=== PATIENT | male | born 1960 | race Caucasian/White ===

== ENCOUNTER → 2023-12-26 13:54 | Outpatient (REF) | payer BC, SELFPAY | LOC: HWRAD 13:54 | PROVIDERS: ATTENDING PHYSICIAN Nurse Practitioner Family; FAMILY PHYSICIAN Internal Medicine | DX: J45.998 Other asthma (principal) | CPT/HCPCS: 71046 ==

== ENCOUNTER → 2024-01-04 10:40 | Outpatient (REF) | payer BC, SELFPAY | LOC: RAD 10:40 | PROVIDERS: ATTENDING PHYSICIAN Allergy & Immunology; FAMILY PHYSICIAN Internal Medicine | DX: J45.998 Other asthma (principal) | CPT/HCPCS: 71250 ==

== ENCOUNTER → 2024-03-26 07:59 | Outpatient (REF) | payer BC, SELFPAY | LOC: DHCBC/DCA 07:59 | PROVIDERS: ATTENDING PHYSICIAN Internal Medicine Cardiovascular Disease; FAMILY PHYSICIAN Internal Medicine | DX: Z86.79 Personal history of other diseases of the circulatory system (principal) | CPT/HCPCS: 78452; 93017; A9500 ==

== ENCOUNTER → 2024-08-29 10:49 | Outpatient (REF) | payer BC, SELFPAY | LOC: HWRAD 10:49 | PROVIDERS: ATTENDING PHYSICIAN Nurse Practitioner Family; FAMILY PHYSICIAN Internal Medicine | DX: J45.998 Other asthma (principal) | CPT/HCPCS: 71046 ==